=== PATIENT | female | born 1945 | race Caucasian/White ===

== ENCOUNTER 2016-09-14 10:44 | Emergency (ER) | payer MEDICARE ==
[~2016-09-14] VITALS: Ht 160 cm; Wt 72.0 kg
[~2016-09-14 10:44] MED LIST: ALBU8I INH; ALPR.25 PO; BOSWTAB2 PO; CALCCHW25 PO; CILO100T PO; ENOX30P SQ; ESTR1.25 PO; FERR50TA PO; LEVO.125 PO; LOMO PO; MULTCAP2 PO; OMEP20CA5 PO; PERC5TAB12 PO; PROZ20CA11 PO; SUMA50 PO; THEO300T31 PO; VITA400C28 PO; Z.0.COMMODE-3:1; Z.0.CPM; Z.0.WALKERFRONT; ZOCO40TA PO
[2016-09-14 10:52] VITALS: BP 130/89; PULSE 122; RESP 16; TEMP 98.3; O2SAT 93
--- NOTE | 2016-09-14 11:05 | PD ---
HPI . Right knee pain and swelling since Sunday Chief Complaint: Pain: Acute or Chronic Time Seen by Provider: 11:04 Travel History International Travel<30 days: No Contact w/Intl Traveler<30days: No Traveled to known affect area: No History of Present Illness HPI 70-year-old female with history of hypercholesteremia, urinary incontinence, chronic osteophyte arthritis, migraine, depression and COPD here with complaints of right knee pain and swelling since Sunday. Patient denies any injury and states that she has a chronic history of osteoarthritis. She has previously had surgery on her left knee and tells me that she thinks it may be time to have her right knee looked at. She does have orthopedic appointment at the end of the month. She could not wait for treatment until then and decided to come to the emergency department for further evaluation. She has some minimal right knee swelling and pain with ambulation. She has full ROM and no joint instability. She has not tried any NSAIDs. PFSH Past Medical History Hx Anticoagulant Therapy: No Cancer: No Cardiovascular Problems: Yes (CHOL) Diabetes: No Diminished Hearing: No Endocrine: Yes Glaucoma: No Genitourinary: Yes (INCONTINENCE) Hepatitis: No Hiatal Hernia: Yes Hypertension: No Immune Disorder: No Musculoskeletal: Yes (ARTHRITIS) Neurologic: Yes (MIGRAINES) Psychiatric: Yes (DEPRESSION) Reproductive: No Respiratory: Yes (COPD) Thyroid Disease: Yes ?: Not Menopausal: Yes Past Surgical History Abdominal Surgery: Yes (x3 ING. HERNIA REPS., LAP DEWAYNE) AICD: No Cardiac Surgery: No Ear Surgery: No Endocrine Surgery: No Eye Surgery: No Genitourinary Surgery: No Gynecologic Surgery: Yes (HYSTERECTOMY) Joint Replacement: No Oral Surgery: No Pacemaker: No Thoracic Surgery: No Other Surgery: Yes Social History Alcohol Use: No Tobacco Use: No (QUIT 14 MONTHS AGO) Substance Use: No Allergies-Medications (Allergen,Severity, Reaction): Coded Allergies: Sulfa (Verified Allergy, Mild, Rash, 09/14/16) Reported Meds & Prescriptions Reported Meds & Active Scripts Active Ibuprofen 600 Mg Tab 600 Mg PO TID Reported Sumatriptan (Sumatriptan Succinate) 50 Mg Tab 50 Mg PO ONCE PRN If a satisfactory response has not been obtained at 2 hours, a second dose may be administered Calcium 600 with Vitamin D (Calcium Carbonate-Cholecalciferol) 600-400 mg-Unit Tab 1 Tab PO DAILY Ambien (Zolpidem Tartrate) 5 Mg Tab 5 Mg PO HS PRN Alprazolam 0.5 Mg Tab 0.5 Mg PO DAILY PRN Alprazolam Xr (Alprazolam) 0.5 Mg Tab Diphenoxylate-Atropine 2.5-0.025 Mg Tab 1 Tab PO Q6H PRN Omeprazole 20 Mg Tab 20 Mg PO BID Prozac (Fluoxetine HCl) 20 Mg Cap 20 Mg PO DAILY Zocor (Simvastatin) 40 Mg Tab 40 Mg PO DAILY Meloxicam 15 Mg Tab 15 Mg PO DAILY Levothyroxine (Levothyroxine Sodium) 125 Mcg Tab 125 Mcg PO DAILY Review of Systems General / Constitutional: No: Fever Eyes: No: Visual changes HENT: No: Headaches Cardiovascular: No: Chest Pain or Discomfort Respiratory: No: Shortness of Breath Gastrointestinal: No: Abdominal Pain Genitourinary: No: Dysuria Musculoskeletal: Positive: Pain (right knee) Skin: No Rash Neurologic: No: Weakness Psychiatric: No: Depression Endocrine: No: Polydipsia Hematologic/Lymphatic: No: Easy Bruising Physical Exam Narrative GENERAL: AAO x 3, no acute distress, Well-nourished, well-developed patient. SKIN: Warm and dry. No visible rashes or bruising. HEAD: Normocephalic and atraumatic. EYES: No scleral icterus. No injection or drainage. ENT: No nasal drainage noted. Mucous membranes pink. Airway patent. NECK: Supple, trachea midline. No JVD. CARDIOVASCULAR: Regular rate and rhythm without murmurs, gallops, or rubs. RESPIRATORY: Breath sounds equal bilaterally. No accessory muscle use. No rhonchi or rales. GASTROINTESTINAL: Abdomen soft, non-tender, nondistended. EXTREMITIES: No cyanosis. Right knee with increased amount of crepitus, there is no patellar deformity, small effusion on the medial knee, negative Everardo and Arleth. Flexion-extension is normal without any difficulty. BACK: Nontender without obvious deformity. No CVA tenderness. PSYCH: AAO x 3, normal affect. Data Data Last Documented VS Vital Signs Date Time Temp Pulse Resp B/P Pulse Ox O2 Delivery O2 Flow Rate FiO2 09/14/16 11:00 88 09/14/16 10:52 98.3 16 130/89 93 Orders ^ Luther Bandage (09/14/16 11:18) [facility] Medical Decision Making Medical Screen Exam Complete: Yes Emergency Medical Condition: Yes Medical Record Reviewed: Yes Differential Diagnosis acute on chronic OA, Right Knee effusion, less likely fracture Narrative Course 70-year-old female with history of hypercholesteremia, urinary incontinence, chronic osteophyte arthritis, migraine, depression and COPD here with complaints of right knee pain and swelling since Sunday. Patient denies any injury and states that she has a chronic history of osteoarthritis. She has previously had surgery on her left knee and tells me that she thinks it may be time to have her right knee looked at. She does have orthopedic appointment at the end of the month. She could not wait for treatment until then and decided to come to the emergency department for further evaluation. She has some minimal right knee swelling and pain with ambulation. She has full ROM and no joint instability. She has not tried any NSAIDs. Patient seen and examined. Discussed exam findings with patient. Recommend orthopedic follow-up and treatment for bursitis here in the ED. Explained that imaging is not warranted. She was understanding. Recommend ibuprofen and knee brace/luther wrap. Patient verbalized understanding of instructions, questions were answered, and thanked me for their care. I advised them if their condition worsens, please return to the nearest emergency room for further care. Diagnosis Primary Impression: Bursitis of right knee Patient Instructions: General Instructions, Knee Bursitis (ED) Additional Instructions: Please return to emergency department if your symptoms return or worsen. Follow up with your primary care provider. Take medications as prescribed. Please keep your appointment with orthopedic. Med/Other Pt SpecificInfo: Prescription(s) given Scripts Ibuprofen 600 Mg Cox961 Mg PO TID #20 TAB Ref 0 Prov:Alice Melton 09/14/16 Disposition: 01 DISCHARGE HOME Condition: Stable Loraine Ward Sep 14, 2016 11:05
[2016-09-14] MEDS ORDERED: MELO-1 PO (11:07)
[2016-09-14] MEDS ORDERED: LEVO125T4 PO (11:07)
[2016-09-14] MEDS ORDERED: PROZ20CA11 PO (11:08)
[2016-09-14] MEDS ORDERED: ZOCO40TA PO (11:08)
[2016-09-14] MEDS ORDERED: OMEP20TA PO (11:09)
[2016-09-14] MEDS ORDERED: DIPH2.5T14 PO (11:09)
[2016-09-14] MEDS ORDERED: ALPR0.5T3 PO (11:10)
[2016-09-14] MEDS ORDERED: ALPRTAB4 (11:10)
[2016-09-14] MEDS ORDERED: AMBI5TAB PO (11:11)
[2016-09-14] MEDS ORDERED: CALC1TAB87 PO (11:11)
[2016-09-14] MEDS ORDERED: SUMA50TA2 PO (11:11)
[2016-09-14] MEDS ORDERED: IBUP-232 PO (11:17)
== END 2016-09-14 11:51 | disposition home or self-care (01) ==
LOC: PHEFT 10:44
DX: M70.51 Other bursitis of knee, right knee (principal); M19.90 Unspecified osteoarthritis, unspecified site; E78.00 Pure hypercholesterolemia, unspecified; E07.9 Disorder of thyroid, unspecified; Z86.79 Personal history of other diseases of the circulatory system; Z87.448 Personal history of other diseases of urinary system; Z86.69 Personal history of other diseases of the nervous system and sense organs; Z87.09 Personal history of other diseases of the respiratory system; Z87.39 Personal history of other diseases of the musculoskeletal system and connective tissue
CPT/HCPCS: 99283

== ENCOUNTER 2017-02-09 16:03 | Emergency (ER) | payer MEDICARE ==
[~2017-02-09] VITALS: Ht 160 cm; Wt 73.5 kg
[~2017-02-09 16:03] MED LIST changes: -ALBU8I INH; -ALPR.25 PO; +ALPR0.5T3 PO; +ALPRTAB4; +AMBI5TAB PO; -BOSWTAB2 PO; +CALC1TAB87 PO; -CALCCHW25 PO; -CILO100T PO; +DIPH2.5T14 PO; -ENOX30P SQ; -ESTR1.25 PO; -FERR50TA PO; +IBUP-232 PO; -LEVO.125 PO; +LEVO125T4 PO; -LOMO PO; +MELO-1 PO; -MULTCAP2 PO; -OMEP20CA5 PO; +OMEP20TA PO; -PERC5TAB12 PO; -SUMA50 PO; +SUMA50TA2 PO; -THEO300T31 PO; -VITA400C28 PO; -Z.0.COMMODE-3:1; -Z.0.CPM; -Z.0.WALKERFRONT
[2017-02-09 16:22] VITALS: BP 121/69; PULSE 116; RESP 18; TEMP 98.6; O2SAT 94
[2017-02-09 16:57] LABS: AUTOMATED NEUTROPHIL # 4.5 TH/MM3 (1.8-7.7); BASOPHIL # 0.1 TH/MM3 (0-0.2); BASOPHIL % 1.4 % (0.0-2.0); EOSINOPHIL # 0.3 TH/MM3 (0-0.4); EOSINOPHIL % 4.5 % (0.0-4.0); HEMATOCRIT 43.3 % (35.0-46.0); HEMO FLAGS DIFF FINAL; LYMPH % 23.7 % (9.0-44.0); LYMPHOCYTE # 1.7 TH/MM3 (1.0-4.8); MEAN CORPUSCULAR HEMOGLOBIN 28.3 PG (27.0-34.0); MEAN CORPUSCULAR HGB CONC 32.9 % (32.0-36.0); MONO % 8.9 % (0.0-8.0); NEUT % 61.5 % (16.0-70.0); PLATELET COUNT 429 TH/MM3 (150-450); RED BLOOD COUNT 5.03 MIL/MM3 (4.00-5.30); RED CELL DISTRIBUTION WIDTH 14.1 % (11.6-17.2); WHITE BLOOD COUNT 7.2 TH/MM3 (4.0-11.0)
--- NOTE | 2017-02-09 16:59 | PD ---
HPI Chief Complaint: Cardiac Complaint Time Seen by Provider: 16:22 Travel History International Travel<30 days: No Contact w/Intl Traveler<30days: No Traveled to known affect area: No History of Present Illness HPI This 71-year-old woman who presents to the emergency department with elevated heart rate. She's had a small area of tenderness in her left abdomen. She squeezed a couple times and got pus out of it. Is been there for about a month or so. It still irritated because it right on her waistband. Tingling to an urgent care today to have it looked at. They gave her prescription for doxycycline but because of her elevated heart rate that was noticed incidentally , in the 120s to 130s, she was referred to the emergency department. She is a history of COPD. She has some dyspnea on exertion at baseline. She states maybe this is been a little bit worse recently. She otherwise has been feeling generally well and healthy. No fevers or chills. She hasn't felt particularly ill. She has not had any chest pain. No other complaints. History Past Medical History Narrative Medical COPD Hyponatremia Hyperlipidemia Peripheral vascular disease Osteoarthritis Osteoporosis Tetanus Vaccination: > 5 Years Influenza Vaccination: Yes Menopausal: Yes Social History Alcohol Use: Yes (RARE) Tobacco Use: No Allergies-Medications (Allergen,Severity, Reaction): Coded Allergies: Sulfa (Verified Allergy, Mild, Rash, 02/09/17) Reported Meds & Prescriptions Reported Meds & Active Scripts Active Reported Sumatriptan (Sumatriptan Succinate) 50 Mg Tab 50 Mg PO ONCE PRN If a satisfactory response has not been obtained at 2 hours, a second dose may be administered Calcium 600 with Vitamin D (Calcium Carbonate-Cholecalciferol) 600-400 mg-Unit Tab 1 Tab PO DAILY Ambien (Zolpidem Tartrate) 5 Mg Tab 5 Mg PO HS PRN Alprazolam 0.5 Mg Tab 0.5 Mg PO DAILY PRN Diphenoxylate-Atropine 2.5-0.025 Mg Tab 1 Tab PO Q6H PRN Omeprazole 20 Mg Tab 20 Mg PO BID Prozac (Fluoxetine HCl) 20 Mg Cap 20 Mg PO DAILY Zocor (Simvastatin) 40 Mg Tab 40 Mg PO DAILY Meloxicam 15 Mg Tab 15 Mg PO DAILY Levothyroxine (Levothyroxine Sodium) 125 Mcg Tab 125 Mcg PO DAILY Review of Systems Except as stated in HPI: all other systems reviewed are Neg Physical Exam Narrative GENERAL: Well-appearing 71-year-old woman, no acute distress. SKIN: Focused skin assessment warm/dry. There is a small focal area of erythema and induration on the left lower abdomen, approximately 1 x 3 cm. No fluctuance or purulent drainage. HEAD: Atraumatic. Normocephalic. NECK: Trachea midline. No JVD. CARDIOVASCULAR: Regular rate and rhythm. No murmur appreciated. RESPIRATORY: No accessory muscle use. Clear to auscultation. Breath sounds equal bilaterally. GASTROINTESTINAL: Abdomen soft, non-tender, nondistended. Hepatic and splenic margins not palpable. MUSCULOSKELETAL: No obvious deformities. No edema. NEUROLOGICAL: Awake and alert. No obvious cranial nerve deficits. Motor grossly within normal limits. Normal speech. PSYCHIATRIC: Appropriate mood and affect; insight and judgment normal. Data Data Last Documented VS Vital Signs Date Time Temp Pulse Resp B/P Pulse Ox O2 Delivery O2 Flow Rate FiO2 02/09/17 16:22 Room Air 02/09/17 16:22 98.6 116 18 121/69 94 Orders Complete Blood Count With Diff (02/09/17 16:41) Comprehensive Metabolic Panel (02/09/17 16:41) Thyroid Stimulating Hormone (02/09/17 16:41) Electrocardiogram (02/09/17 ) Chest, Single Ap (02/09/17 ) Labs Laboratory Tests Test 02/09/17 16:45 White Blood Count 7.2 TH/MM3 Red Blood Count 5.03 MIL/MM3 Hemoglobin 14.3 GM/DL Hematocrit 43.3 % Mean Corpuscular Volume 86.0 FL Mean Corpuscular Hemoglobin 28.3 PG Mean Corpuscular Hemoglobin 32.9 % Concent Red Cell Distribution Width 14.1 % Platelet Count 429 TH/MM3 Mean Platelet Volume 8.0 FL Neutrophils (%) (Auto) 61.5 % Lymphocytes (%) (Auto) 23.7 % Monocytes (%) (Auto) 8.9 % Eosinophils (%) (Auto) 4.5 % Basophils (%) (Auto) 1.4 % Neutrophils # (Auto) 4.5 TH/MM3 Lymphocytes # (Auto) 1.7 TH/MM3 Monocytes # (Auto) 0.6 TH/MM3 Eosinophils # (Auto) 0.3 TH/MM3 Basophils # (Auto) 0.1 TH/MM3 CBC Comment DIFF FINAL Differential Comment Sodium Level 139 MEQ/L Potassium Level 3.5 MEQ/L Chloride Level 105 MEQ/L Carbon Dioxide Level 28.0 MEQ/L Anion Gap 6 MEQ/L Blood Urea Nitrogen 16 MG/DL Creatinine 0.81 MG/DL Estimat Glomerular Filtration 70 ML/MIN Rate Random Glucose 79 MG/DL Calcium Level 9.6 MG/DL Total Bilirubin 0.2 MG/DL Aspartate Amino Transf 23 U/L (AST/SGOT) Alanine Aminotransferase 20 U/L (ALT/SGPT) Alkaline Phosphatase 106 U/L Total Protein 7.6 GM/DL Albumin 3.6 GM/DL Thyroid Stimulating Hormone 0.597 uIU/ML 3rd Gen [facility] Medical Decision Making Medical Screen Exam Complete: Yes Emergency Medical Condition: Yes Interpretation(s) My review of EKG: Sinus tachycardia rate of 113, rightward axis with a right bundle branch block, no old EKG available for comparison. LABS: CBC is unremarkable. CMP is unremarkable. TSH is normal. Chest x-rays negative. Differential Diagnosis Dehydration, anemia, thyroid disease, PE, other Narrative Course Medical decision making 71-year-old woman presents emergent from essentially asymptomatic tachycardia. She is a small skin wound on her abdomen but with no evidence of significant infection or sepsis. She has COPD and states maybe it's been a little bit worse recently. She has no leg swelling or evidence of PE. She looks overall well. She does not look anemic. We'll check thyroid tests, cell count, EKG and chest x-ray. EKG shows sinus tachycardia. She does have a right bundle branch block, no old for comparison. We'll reassess. Diagnosis Primary Impression: Tachycardia, unspecified Additional Instructions: Follow-up with your primary doctor. Call Sunday for the first available appointment. Return to the emergency department for any lightheadedness dizziness chest pain trouble breathing or any other new or worsening symptoms. Continue current medications as prescribed. Med/Other Pt SpecificInfo: No Change to Meds Disposition: 01 DISCHARGE HOME Condition: Stable Jhonatan Jaquez MD Feb 09, 2017 16:59
--- NOTE | 2017-02-09 17:00 | RADRPT ---
EXAM DATE/TIME: 02/09/2017 16:48 [facility] COMPARISON: No previous studies available for comparison. INDICATIONS : Shortness of breath. MEDICAL HISTORY : Chronic obstructive pulmonary disease. Gastroesophageal reflux disease. Arthritis. Thyroid diseas e, Ulcers, Anemia SURGICAL HISTORY : Cholecystectomy. Hysterectomy. Hernia repair, Left bunionectomy ENCOUNTER: Initial ACUITY: 1 day PAIN SCORE: 0/10 LOCATION: Bilateral chest FINDINGS: A single view of the chest demonstrates the lungs to be symmetrically aerated without evidence of mas s, infiltrate or effusion. The cardiomediastinal contours are unremarkable. Osseous structures are intact. CONCLUSION: No acute disease. Anselmo Figueroa MD FACR on February 09, 2017 at 16:58 Board Certified Radiologist. This report was verified electronically.
[2017-02-09 17:03] LABS: CHLORIDE 105 MEQ/L (98-107); POTASSIUM 3.5 MEQ/L (3.5-5.1); SODIUM (NA) 139 MEQ/L (136-145)
[2017-02-09 17:07] LABS: ANION GAP 6 MEQ/L (5-15); BLOOD UREA NITROGEN 16 MG/DL (7-18)
[2017-02-09 17:10] LABS: ALT (GPT) 20 U/L (10-53); AST (GOT) 23 U/L (15-37); GLOMERULAR FILTRATION RATE 70 ML/MIN (>89)
[2017-02-09 17:11] LABS: TOTAL BILIRUBIN ADULT 0.2 MG/DL (0.2-1.0)
[2017-02-09 17:13] LABS: ALKALINE PHOSPHATASE 106 U/L (45-117)
[2017-02-09 18:31] VITALS: BP 117/64; PULSE 103; RESP 16; O2SAT 97
--- NOTE | 2017-02-10 13:46 | EKG ---
Date Performed: 02/09/2017 Time Performed: 16:20:02 PTAGE: 71 years EKG: SINUS TACHYCARDIA MARKED RIGHT AXIS DEVIATION RIGHT BUNDLE BRANCH BLOCK Compared to previou s tracing, the patient has a new right bundle branch block with significant right axis deviation. ABN ORMAL ECG PREVIOUS TRACING : 01/14/1996 13.47 DOCTOR: Parish Ng Interpretating Date/Time 02/10/2017 13:46:19
== END 2017-02-09 18:37 | disposition home or self-care (01) ==
LOC: PHED 16:03
DX: R00.0 Tachycardia, unspecified (principal); R23.8 Other skin changes; R06.00 Dyspnea, unspecified; R94.31 Abnormal electrocardiogram [ECG] [EKG]; E78.5 Hyperlipidemia, unspecified; Z87.09 Personal history of other diseases of the respiratory system; Z86.79 Personal history of other diseases of the circulatory system; Z87.39 Personal history of other diseases of the musculoskeletal system and connective tissue
CPT/HCPCS: 71010; 80053; 84443; 85025; 93005

== ENCOUNTER → 2017-11-02 | Outpatient (CLI) | payer MEDICARE ==
[~2017-11-02] MED LIST changes: -ALPRTAB4; -IBUP-232 PO; -MELO-1 PO; +MELO15TA20 PO; -OMEP20TA PO; +OMEP20TA93 PO
--- NOTE | 2017-11-02 13:13 | RADRPT ---
EXAM DATE/TIME: 11/02/2017 12:49 [facility] COMPARISON: No previous studies available for comparison. INDICATIONS : Chronic obsructive pulmonary disease RADIATION DOSE: 8.16 CTDIvol (mGy) MEDICAL HISTORY : Chronic obstructive pulmonary disease. SURGICAL HISTORY : Cholecystectomy. Hysterectomy. ENCOUNTER: Initial ACUITY: 1 day PAIN SCALE: 2/10 LOCATION: chest TECHNIQUE: Volumetric scanning of the chest was performed. Using automated exposure control and adjustment of t he mA and/or kV according to patient size, radiation dose was kept as low as reasonably achievable to obtain optimal diagnostic quality images. DICOM format image data is available electronically for r eview and comparison. Follow-up recommendations for detected pulmonary nodules are based at a minimum on nodule size and pa tient risk factors according to Fleischner Society Guidelines. FINDINGS: LUNGS: There is no consolidation or pneumothorax except for some atelectasis in the right middle lobe with v olume loss.. No concerning pulmonary nodule is visualized measuring over 6 mm. There are a few tiny nodules in the right lung the largest is identified on image 31 in the right lower lobe. No abnormall y concerning PLEURAE: There is no pleural thickening or pleural effusion. A few calcified pleural plaques MEDIASTINUM: The heart and great vessels demonstrate no acute abnormality. There is no mediastinal or hilar lymph adenopathy. AXILLAE: Within normal limits. No lymphadenopathy. MUSCULOSKELETAL: Within normal limits for patient age. MISCELLANEOUS: The visualized upper abdominal organs demonstrate no acute abnormality. CONCLUSION: Some scarring the right middle lobe with volume loss. A few minimal nodules. No concerning infiltrate or lesion seen. Jhonatan Felix MD on November 02, 2017 at 13:10 Board Certified Radiologist. This report was verified electronically.
--- NOTE | 2017-11-06 10:54 | RSPPFT ---
DATE OF PROCEDURE: 11/02/17 COMMENTS: Spirometry shows FVC of 0.9 at 35% of predicted, FEV1 of 0.5 at 24%, FEV1/FVC ratio is decreased. Flow is decreased at FEF 25, FEF 50, FEF 75 and FEF 25-75. There is a good response after bronchodilator treatment. Lung volumes show residual volume is increased. TLC is normal. Diffusion capacity is decreased. Flow volume loop indicates an obstructive pattern. Room air arterial blood gases show pH of 7.41, PCO2 of 48, PO2 of 73, BiCarb of 29 and Saturation at 92%. 6-minute walk test shows de-saturation. IMPRESSION: 1. Moderately severe COPD. 2. Good response after bronchodilator treatment. 3. Lung volumes show air trapping. 4. Blood gases show hypoxia. 5. 6-minute walk test shows de-saturation.
== END ==
LOC: HRSP 10:47
PROVIDERS: ATTEND Specialist
DX: J44.9 Chronic obstructive pulmonary disease, unspecified (principal)
CPT/HCPCS: 36600; 71250; 82805; 94060; 94726; 94729